=== PATIENT | male | born 1930 | race Caucasian/White ===

== ENCOUNTER → 2017-03-24 | Outpatient (CLI) | payer OTHER ==
[~2017-03-24] VITALS: Ht 175.3 cm; Wt 82.0 kg
[~2017-03-24] MED LIST: ACETAMINOPHEN 500 MG TAB PO SCH; CEFA500C2 PO; CEFAZOLIN 2000MG IV PUSH 10 ML IV SCH; CIPR-255 PO; CLB200 PO; CeleBREX 200 MG CAP PO SCH; DEXAMETHASONE 4 MG TAB PO SCH; DIPH-437 PO; FAMOTIDINE 20 MG TAB PO SCH; FIBER PO; FINA5TAB PO; GABAPENTIN 300 MG CAP PO SCH; LACTATED RINGER'S 1000ML 1,000 ML IV SCH; LACTATED RINGER'S 1000ML 500 ML IV SCH; LACTATED RINGER'S 1000ML IV SCH; MAGN400T6 PO; METOCLOPRAMIDE HCL 10 MG TAB PO SCH; MULT-506 PO; OMEG10007 PO; PANT40TA PO; POLY150C4 PO; ROPIVACAINE 5MG/ML 30 ML 150 MG, BUPIVACAINE 0.5% MPF INJ 30 ML, EpINEphrine HCL INJ 0.... INFIL SCH; TAMS0.4C38 PO; TRANEXAMIC ACID INJ 1,000 MG in SYRINGE 0 ML IV SCH
[2017-03-24 14:36] VITALS: Ht 175.3 cm; Wt 82.0 kg
--- NOTE | 2017-03-24 15:05 | PAT Medication Instructions ---
Service Date Mar 24, 2017. Current Home Medication List Acetaminophen/Diphenhydramine (Tylenol Pm), 1 TAB PO HS Celecoxib (Celebrex), 1 CAP PO QPM Fiber Laxative (Fiber Laxative), 1 TAB PO HS Finasteride (Proscar), 5 MG PO QPM Fish Oil ([place]-3), 1 CAP PO QPM Magnesium Oxide (Mag-Ox), 400 MG PO QAM Multivitamin (Multivitamin), 1 TAB PO QAM Pantoprazole (Protonix), 40 MG PO QAM Polysaccharide Iron Complex (Ferrex 150), 1 CAP PO BID Tamsulosin Hcl (Flomax), 0.4 MG PO BID Medication Instructions For Your Scheduled Surgery - Hold the following medications per surgeon's instructions: Celecoxib (Celebrex), 1 CAP PO QPM - Hold the following medications 2 weeks prior to surgery: Fish Oil ([place]-3), 1 CAP PO QPM - Hold the following medications the morning of surgery: Polysaccharide Iron Complex (Ferrex 150), 1 CAP PO BID Magnesium Oxide (Mag-Ox), 400 MG PO QAM Multivitamin (Multivitamin), 1 TAB PO QAM - Take the following medications the morning of surgery with a sip of water OTHERWISE NOTHING TO EAT OR DRINK AFTER MIDNIGHT: Tamsulosin Hcl (Flomax), 0.4 MG PO BID Pantoprazole (Protonix), 40 MG PO QAM - Take the following medications as scheduled the night before surgery: Tamsulosin Hcl (Flomax), 0.4 MG PO BID Polysaccharide Iron Complex (Ferrex 150), 1 CAP PO BID Fiber Laxative (Fiber Laxative), 1 TAB PO HS Finasteride (Proscar), 5 MG PO QPM Acetaminophen/Diphenhydramine (Tylenol Pm), 1 TAB PO HS If you have any questions please call us at [phone] or [phone] or [phone]
[2017-03-24 15:52] LABS: BASO % 0.3 %; BASO ABS # 0.01 K/uL (0-0.2); EOS % 0.3 %; EOS ABS # 0.01 K/uL (0-0.5); HEMATOCRIT 35.5 % (42-52); HEMOGLOBIN 11.8 g/dL (14.0-18.0); LYMPH % 29.2 %; LYMPH ABS # 1.14 K/uL (1.2-3.4); MEAN CELL VOLUME 95.2 fL (80-100); MEAN CORPUSCULAR HEMOGLOBIN 31.6 pg (25-34); MEAN CORPUSCULAR HGB CONC 33.2 g/dl (32-36); MONO ABS # 0.86 K/uL (0.11-0.59); NEUT % 48.2 %; NEUT ABS # 1.89 K/uL (1.4-6.5); PLATELET COUNT 139 K/uL (130-400); RED CELL DISTRIBUTION WIDTH CV 13.4 % (11.5-14.5); RED CELL DISTRIBUTION WIDTH SD 46.3 fL (36.4-46.3); WHITE BLOOD COUNT 3.91 K/uL (4.8-10.8)
[2017-03-24 16:06] LABS: INR 1.1 (0.9-1.1); PTT PATIENT 27.5 SECONDS (21.0-31.0)
[2017-03-24 16:14] LABS: ALBUMIN 3.5 gm/dl (3.4-5.0); CALCIUM 8.7 mg/dl (8.5-10.1); CREATININE 0.98 mg/dl (0.60-1.40); POTASSIUM 4.1 mmol/L (3.5-5.1)
--- NOTE | 2017-03-24 16:25 | DIAGNOSTIC IMAGING REPORT ---
CHEST 2 VIEWS ROUTINE HISTORY: Preop. COMPARISON: Chest 01/18/2016. FINDINGS: The lungs are clear. The heart is stable in size. Mildly tortuous thoracic aorta, unchanged. Stable elevation the right hemidiaphragm. Lumbar spinal fusion hardware is partially visualized. No pleural effusions. No pneumothorax. Old, healed left-sided rib fractures. IMPRESSION: No significant change compared to the prior study. No acute process. Stable elevation of the right hemidiaphragm. Electronically signed by: Johny Al M.D. 03/24/2017 4:24 PM Dictated Date/Time: 03/24/2017 4:22 PM
[2017-03-25 07:12] LABS: HEMOGLOBIN A1C 5.3 % (4.5-5.6)
--- NOTE | 2017-04-24 11:31 | History and Physical ---
History & Physical Date Apr 24, 2017. Chief Complaint left knee pain History of Present Illness The patient is a 87 year old male with complaints of chronic left knee pain because of left knee osteoarthritis. He had been treated conservatively but all of those treatments have failed. He is now being set up for a left total knee arthroplasty. Past Medical/Surgical History PMH: acid reflux, spine problems Social hx: 1.5 ppd smoker for 25 years. Quit in 1968. Denies alcohol use. Past surgical hx: left arm fx ORIF, right knee replacement, bilateral cataracts , TURP Allergies Coded Allergies: No Known Allergies (Unverified , 03/24/17) Home Medications Scheduled Acetaminophen/Diphenhydramine (Tylenol Pm), 1 TAB PO HS Celecoxib (Celebrex), 1 CAP PO QPM Fiber Laxative (Fiber Laxative), 1 TAB PO HS Finasteride (Proscar), 5 MG PO QPM Fish Oil ([place]-3), 1 CAP PO QPM Magnesium Oxide (Mag-Ox), 400 MG PO QAM Multivitamin (Multivitamin), 1 TAB PO QAM Pantoprazole (Protonix), 40 MG PO QAM Polysaccharide Iron Complex (Ferrex 150), 1 CAP PO BID Tamsulosin Hcl (Flomax), 0.4 MG PO BID Physical Examination Skin: warm/dry, no rash Eyes: normal inspection ENT: normal ENT inspection Head: normocephalic, atraumatic Neck: supple, no adenopathy, trachea midline Respiratory/Chest: lungs clear, normal breath sounds, no respiratory distress Cardiovascular: regular rate, rhythm, no murmur Abdomen / GI: normal bowel sounds, non tender Extremities: + pertinent finding (Left knee: + swelling, mild effusion. No erythema or ecchymosis. Tender medial and lateral joint spaces. PROM is painful. + crepitation. ~15 degree flexion contracture.) Neurologic/Psych: no motor/sensory deficits, alert, oriented x 3 Diagnosis left knee osteoarthritis left knee flexion contracture Plan of Treatment Recommend a left TKA. All potential risks, benefits, complications, alternatives, and rehab have been discussed with the patient and he wishes to proceed. He will be scheduled for 04.25.17 with plan for ASA 81 mg BID for 30 days DVT prophylaxis. D/C planning will be [facility] vs. home with home health.
== END | disposition home or self-care (01) ==
LOC: C.LAB 08:00 → EDSTATUS 04-25 09:30
PROVIDERS: ATTEND Orthopaedic Surgery Sports Medicine
DX: Z01.818 Encounter for other preprocedural examination (principal)